=== PATIENT | female | born 1980 | race Caucasian/White ===

== ENCOUNTER → 2016-10-07 | Day surgery (SDC) | payer OTHER, BC ==
[2016-09-14 15:47] VITALS: Ht 162.6 cm; Wt 72.7 kg
--- NOTE | 2016-09-15 10:26 | DIAGNOSTIC IMAGING REPORT ---
TWO VIEW CHEST CLINICAL HISTORY: Preoperative examination. Umbilical hernia. FINDINGS: PA and lateral chest radiographs are obtained. No prior studies are available for comparison at the time of dictation. The cardiomediastinal silhouette is unremarkable. The lungs and pleural spaces are clear. There is no pneumothorax. The bony thorax appears intact. IMPRESSION: No active disease in the chest. Electronically signed by: Nixon Morales M.D. 09/15/2016 10:25 AM Dictated Date/Time: 09/15/2016 10:24 AM
[2016-09-15 11:25] LABS: BASO % 0.6 %; BASO ABS # 0.04 K/uL (0-0.2); COMPLETE YES; EOS % 1.4 %; IG% 0.3 %; LYMPH % 29.2 %; LYMPH ABS # 2.02 K/uL (1.2-3.4); MEAN CELL VOLUME 87.6 fL (80-100); MEAN CORPUSCULAR HEMOGLOBIN 29.7 pg (25-34); MEAN CORPUSCULAR HGB CONC 33.9 g/dl (32-36); MEAN PLATELET VOLUME 12.9 fL (7.4-10.4); MONO % 9.3 %; NEUT % 59.2 %; PLATELET COUNT 210 K/uL (130-400); RED BLOOD COUNT 4.68 M/uL (4.2-5.4); WHITE BLOOD COUNT 6.91 K/uL (4.8-10.8)
[2016-09-15 11:41] LABS: CREATININE 0.85 mg/dl (0.60-1.20)
[2016-09-15 11:42] LABS: BUN/CREATININE RATIO 13.7 (10-20); CALCIUM 8.9 mg/dl (8.5-10.1); POTASSIUM 3.7 mmol/L (3.5-5.1)
[~2016-10-07] VITALS: Ht 162.6 cm; Wt 72.7 kg
[~2016-10-07] MED LIST: ATROPINE SULFATE 0.1 MG/ML 5ML SYR IV PRN; BACITRACIN 50000 UNIT VIAL ONE; BUPIVACAINE 0.5 % 5 MG/1 ML PF 10ML VIAL ONE; DEXAMETHASONE SOD INJ 4 MG/ML VIAL ONE; EpHEDrine SULFATE INJ 50 MG/ML AMP IV PRN; FENTANYL CITRATE INJ 50 MCG/1 ML 2 ML VIAL IV PRN; FENTANYL CITRATE INJ 50 MCG/1 ML 2 ML VIAL ONE; LACTATED RINGER'S 1000ML 1,000 ML IV SCH; LIDOCAINE HCL 1% 20 ML VIAL ONE; LIDOCAINE HCL 2% 2 ML VIAL (20MG/ML) ONE; MIDAZOLAM HCL 1 MG/ML 2ML VIAL ONE; MoRPHine SULFATE 2 MG/ML CARP IV PRN; ONDANSETRON INJ 2 MG/ML 2 ML VIAL IV PRN; ONDANSETRON INJ 2 MG/ML 2 ML VIAL ONE; OXYC-57 PO; OXYCODONE/ACETAMINOPHEN 5-325 TAB PO PRN; PROPOFOL IV EMULSION 10 MG/ML 20 ML VIAL IV ONE; SCOPOLAMINE 1.5 MG TDSY TD ONE; SODIUM CHLORIDE 0.9% INJ 10 ML VIAL ONE; TRAM-453 PO; TRAMADOL HCL 50 MG TAB ONE; TRAMADOL HCL 50 MG TAB PO PRN; ZNTT/150 PO
--- NOTE | 2016-10-07 08:11 | Discharge Instructions ---
Discharge Instructions Date of Service Oct 07, 2016. Visit Reason for Visit: Umbilical Hernia Discharge Discharge Diagnosis / Problem: Umbilical hernia repair Discharge Goals Goal(s): Decrease discomfort Activity Recommendations Activity Limitations: as noted below Lifting Limitations: no more than 10 pounds Shower/Bathe: no limitations (may shower, remove dressing in a day or two, there is dermabond under) Driving or Machine Use: resume 3 days after discharge Anesthesia . Post Anesthesia Instructions: If you have had General Anesthesia or IV Sedation: * Do not drive today. * Resume driving when surgeon permits. * Do not make important decisions or sign legal documents today. * Call surgeon for: 1. Temperature elevations greater than 101 degrees F. 2. Uncontrollable pain. 3. Excessive bleeding. 4. Persistent nausea and vomiting. 5. Medication intolerance (nausea, vomiting or rash). * For nausea and vomiting use only clear liquids such as: tea, soda, bouillon until nausea subsides, then gradually increase diet as tolerated. * If you have any concerns or questions, call your surgeon's office. If physician is unavailable and it is an emergency, call 911 or go to the nearest emergency room. . Instructions / Follow-Up Instructions / Follow-Up Dr. Vera in 1 week, call [phone] for any questions Diet Recommendations Recommended Home Diet: no limitations Pending Studies Studies pending at discharge: no Medical Emergencies . Who to Call and When: Medical Emergencies: If at any time you feel your situation is an emergency, please call 911 immediately. . Non-Emergent Contact Non-Emergency issues call your: Surgeon Call Non-Emergent contact if: you have a fever, temperature is above 101.5, your pain is not controlled, wound has increased redness, you have any medication questions . . "Provider Documentation" section prepared by Mitch Marques. .
--- NOTE | 2016-10-07 08:17 | History & Physical Bridge Note ---
H&P Re-Evaluation Bridge Note: I have examined the patient, reviewed the History & Physical and in the interval since the performance of the History & Physical I have noted the following changes of clinical significance: No changes noted pt marked at bedside
--- NOTE | 2016-10-07 09:09 | [facility] Operative Report ---
Operative Report Operative Date Oct 07, 2016. Pre-Operative Diagnosis Umbilical Hernia incarcerated Post-Operative Diagnosis Incarcerated Umbilical Hernia Procedure(s) Performed Umbilical Hernia Open Repair With Mesh linette onlay Surgeon Dr. Jennifer Vera [employer] Surgeon(s) Mitch Marques PA-C Estimated Blood Loss 1.5cc Findings incarcerated fatty tissue Specimens A. Incarcerated Umbilical Hernia Description of Procedure OR dictated number [id number] I attest to the content of the Intraoperative Record and any orders documented therein. Any exceptions are noted below.
--- NOTE | 2016-10-07 09:53 | Anesthesia Progress Nt - [facility] ---
Anesthesia Post Op Note Date & Time Oct 07, 2016 at 09:52 Vital Signs Pain Intensity: 0 Vital Signs Past 12 Hours Date Time Temp Pulse Resp B/P (MAP) Pulse Ox O2 Delivery O2 Flow Rate FiO2 10/07/16 09:46 68 18 10/07/16 09:46 68 18 100 10/07/16 09:45 106/70 10/07/16 09:43 72 17 100 10/07/16 09:43 73 17 10/07/16 09:42 65 14 100 10/07/16 09:42 64 14 10/07/16 09:41 64 13 100 10/07/16 09:41 67 13 10/07/16 09:40 114/67 10/07/16 09:39 64 12 10/07/16 09:39 66 12 100 10/07/16 09:38 68 12 100 10/07/16 09:38 68 12 10/07/16 09:37 72 13 100 10/07/16 09:37 71 13 10/07/16 09:35 113/70 10/07/16 09:32 72 16 99 10/07/16 09:32 70 16 10/07/16 09:31 72 14 100 10/07/16 09:31 72 14 10/07/16 09:30 121/68 10/07/16 09:27 75 14 100 10/07/16 09:27 76 14 10/07/16 09:26 82 13 10/07/16 09:26 83 13 100 10/07/16 09:25 77 14 10/07/16 09:25 73 14 110/70 100 10/07/16 09:20 70 13 10/07/16 09:20 69 13 115/67 100 10/07/16 09:15 75 107/65 99 10/07/16 09:15 36.7 75 16 107/65 99 Mask 8 10/07/16 09:15 75 10/07/16 07:15 36.6 78 16 112/77 (89) 99 Room Air Notes Mental Status: alert / awake / arousable, participated in evaluation Pt Amnestic to Procedure: Yes Nausea / Vomiting: adequately controlled Pain: adequately controlled Airway Patency, RR, SpO2: stable & adequate BP & HR: stable & adequate Hydration State: stable & adequate Anesthetic Complications: no major complications apparent
[2016-10-07 10:10] VITALS: TEMP 36.3
--- NOTE | 2016-10-07 10:17 | OPERATIVE REPORT ---
DATE OF OPERATION: 10/07/2016 SURGEON: Dr. Vera. EMPLOYEE REPRESENTATIVE: Pedro Pablo Marques PA-C. PREOPERATIVE DIAGNOSIS: Incarcerated umbilical hernia. POSTOPERATIVE DIAGNOSIS: Same, incarcerated fatty tissue. PROCEDURE: Open repair of incarcerated umbilical hernia with Marlex mesh onlay. SUMMARY: The patient was brought into the operating room theater. The abdomen was prepped with Betadine scrubbing solution and properly draped. We made a smiley incision from 3 to 11 o'clock position inferiorly, deepened through subcutaneous tissue. We then freed up the umbilical tissue from the hernial sac and what we identified once we had hernial sac, there was a little clear fluid but nothing other significant finding this was well contained very localized. We took that tissue out and sent it to pathology which is a little fatty tissue. Then, we freed up circumferentially the defect which was approximately a centimeter utmost, freed it from the abdominal wall, and the contents were just fatty tissue, we actually could see that we were probably likely in the peritoneal cavity, may have been a little incarcerated omental tissue. We resected this, ligating the base with 2-0 silk and sent this also to pathology. Of note, what we could see in that area, there was no evidence of any seeding of any other suspicious area. This may just be a small inclusion cyst that we had seen initially. At this point, I closed the defect transversely with #1 PDS interrupted suture, then brought in a sheet of Marlex to onlay it on top of the defect and circumferentially overlapping about a centimeter or so. The circular structure of Marlex mesh was approximately 3 cm in size. We attached it to the abdominal wall with 2-0 Prolene. Local anesthesia 0.5% Marcaine was used to infiltrate the operative field. We then closed the subcutaneous tissue with 2-0 Dexon interrupted suture, reapproximating the skin edge. We modified the skin edge to the right side, a small amount. The patient had sensitivity to tape, therefore, we will use 4-0 Monocryls and Dermabond, place a piece of cotton in the umbilical tissue and leave the adhesive tape on for about 24 hours which she said would be fine. Procedure was tolerated well. Estimated blood loss approximately 1-1/2 mL. The patient was taken to recovery room in good condition. I attest to the content of the Intraoperative Record and any orders documented therein. Any exceptions are noted below. MTDD
[2016-10-07 10:43] VITALS: BP 106/66; PULSE 60; O2SAT 99
== END | disposition home or self-care (01) ==
LOC: X.SURG 06:59
PROVIDERS: ATTEND Surgery
DX: K42.0 Umbilical hernia with obstruction, without gangrene (principal); E05.00 Thyrotoxicosis with diffuse goiter without thyrotoxic crisis or storm; E06.3 Autoimmune thyroiditis; E78.00 Pure hypercholesterolemia, unspecified; I86.8 Varicose veins of other specified sites

== ENCOUNTER → 2016-11-11 | Outpatient (CLI) | payer OTHER, BC ==
[~2016-11-11] MED LIST changes: -ATROPINE SULFATE 0.1 MG/ML 5ML SYR IV PRN; -BACITRACIN 50000 UNIT VIAL ONE; -BUPIVACAINE 0.5 % 5 MG/1 ML PF 10ML VIAL ONE; -DEXAMETHASONE SOD INJ 4 MG/ML VIAL ONE; -EpHEDrine SULFATE INJ 50 MG/ML AMP IV PRN; -FENTANYL CITRATE INJ 50 MCG/1 ML 2 ML VIAL IV PRN; -FENTANYL CITRATE INJ 50 MCG/1 ML 2 ML VIAL ONE; -LACTATED RINGER'S 1000ML 1,000 ML IV SCH; -LIDOCAINE HCL 1% 20 ML VIAL ONE; -LIDOCAINE HCL 2% 2 ML VIAL (20MG/ML) ONE; -MIDAZOLAM HCL 1 MG/ML 2ML VIAL ONE; -MoRPHine SULFATE 2 MG/ML CARP IV PRN; -ONDANSETRON INJ 2 MG/ML 2 ML VIAL IV PRN; -ONDANSETRON INJ 2 MG/ML 2 ML VIAL ONE; -OXYC-57 PO; -OXYCODONE/ACETAMINOPHEN 5-325 TAB PO PRN; -PROPOFOL IV EMULSION 10 MG/ML 20 ML VIAL IV ONE; -SCOPOLAMINE 1.5 MG TDSY TD ONE; -SODIUM CHLORIDE 0.9% INJ 10 ML VIAL ONE; -TRAM-453 PO; -TRAMADOL HCL 50 MG TAB ONE; -TRAMADOL HCL 50 MG TAB PO PRN
[2016-11-11 10:14] LABS: CHOLESTEROL/HDL RATIO 3.3; THYROID STIMULATING HORMONE 2.78 uIu/ml (0.300-4.500)
== END | disposition home or self-care (01) ==
LOC: C.LAB 07:18
PROVIDERS: ATTEND Physician Assistant Medical
DX: Z00.00 Encounter for general adult medical examination without abnormal findings (principal); E05.90 Thyrotoxicosis, unspecified without thyrotoxic crisis or storm